=== PATIENT | female | born 1950 | race Asian ===

== ENCOUNTER 2022-01-03 09:47 | Emergency (ER) | payer SELFPAY ==
--- NOTE | 2022-01-03 12:24 | ED Physician Documentation ---
History of Present Illness - Stated complaint Stated Complaint: SHAKING HANDS - Chief complaint Chief Complaint: General - Additonal information Additional information: 71-year-old female presents to the emergency department Requesting a refill of her amlodipine and losartan. She arrived to the from the [facility] about 1 month ago and has run out of medication. She is in the process of trying to establish with a primary care doctor. Denies any history of diabetes. Non- smoker. No history of coronary artery disease or stenting. Takes no anticoagulants. She denies chest pain or shortness of air. Review of Systems Constitutional: reports: Reviewed and negative Ears: reports: Reviewed and negative Cardiac: reports: Reviewed and negative Respiratory: reports: Reviewed and negative GI: reports: Reviewed and negative : reports: Reviewed and negative Musculoskeletal: reports: Reviewed and negative PD PAST MEDICAL HISTORY - Present Medications Home Medications: Ambulatory Orders Medication Instructions Recorded Confirmed Losartan Potassium 25 mg PO DAILY #30 tablet 01/03/22 amLODIPine [Norvasc] 10 mg PO DAILY #30 tablet 01/03/22 - Allergies Allergies/Adverse Reactions: Allergies Allergy/AdvReac Type Severity Reaction Status Date / Time No Known Drug Allergies Allergy Verified 01/03/22 09:58 PD ED PE NORMAL - General General: Alert and oriented X 3, No acute distress - HEENT HEENT: PERRL - Cardiac Cardiac: RRR, No murmur - Respiratory Respiratory: No respiratory distress, Clear bilaterally - Abdomen Abdomen: Normal bowel sounds, Soft, Non tender - Female Female : Deferred, Pt declined - Back Back: No CVA TTP, No spinal TTP - Derm Derm: Normal color, Warm and dry, No rash - Extremities Extremities: No deformity - Neuro Neuro: Alert and oriented X 3, tapper shank 2-12 intact, No motor deficit Eye Opening: Spontaneous Motor: Obeys Commands Verbal: Oriented GCS Score: 15 - Psych Psych: Normal mood Results - Vitals Vitals: Vital Signs - 24 hr 01/03/22 09:52 Temperature 36.8 C Heart Rate 84 Respiratory 16 Rate Blood Pressure 183/79 H O2 Saturation 94 Oxygen O2 Source Room air PD MEDICAL DECISION MAKING - ED course Complexity details: re-evaluated patient, d/w patient ED course: 71-year-old female presents emergency department requesting a refill of her amlodipine and losartan. Has been out for a number of weeks. Recently moved to the [facility] from the [facility] and is in the process of trying to establish care. She denies chest pain, shortness of air lower leg swelling. No history of diabetes non-smoker. No previous history of coronary artery disease. I will write for 1 month of both of these medications. Advised to continue follow-up through PCP in the future. Otherwise emergent return precautions discussed. Departure - Departure Disposition: 01 Home, Self Care Clinical Impression: Hypertension Qualifiers: Hypertension type: unspecified Qualified Code(s): I10 - Essential (primary) hypertension Condition: Stable Record reviewed to determine appropriate education?: Yes Prescriptions: Losartan Potassium 25 mg PO DAILY #30 tablet amLODIPine [Norvasc] 10 mg PO DAILY #30 tablet Comments: Bonnie was seen today in the emergency department requesting a refill of her losartan and amlodipine. These 2 prescriptions have been sent to the [facility] in [place]. Moving forward it will be important that she see a primary care doctor for longer-term medication coverage. Should she have chest pain, fainting, sudden severe shortness of air she should return immediately to the ER for a second evaluation.
[2022-01-03 12:44] VITALS: BP 181/76
== END 2022-01-03 12:45 | disposition home or self-care (01) ==
LOC: ED 09:47
DX: Z76.0 Encounter for issue of repeat prescription (principal); I10 Essential (primary) hypertension
CPT/HCPCS: 99282; 99283